=== PATIENT | female | born 1980 | race Asian ===

== ENCOUNTER 2024-04-16 04:43 | Day surgery (SDC) | payer OTHER ==
[2024-04-10 09:00] VITALS: BMI 29.0
[2024-04-16 09:00] VITALS: RESP 18; TEMP 97.7
[2024-04-16 14:43] VITALS: BP 127/75; PULSE 59
== END 2024-04-16 09:28 | disposition home or self-care (01) ==
LOC: JASU-ENDO 04:43
PROVIDERS: ATTEND Internal Medicine Gastroenterology
PROC: 0DJD8ZZ Inspection of Lower Intestinal Tract, Via Natural or Artificial Opening Endoscopic (ICD-10-PCS; principal; 2024-04-16 08:30)
DX: Z12.11 Encounter for screening for malignant neoplasm of colon (principal)
CPT/HCPCS: 81025